=== PATIENT | male | born 1940 | race Caucasian/White ===

== ENCOUNTER 2018-01-08 13:44 | Inpatient (IN) | payer OTHER, BC ==
[~2018-01-08] VITALS: Ht 172.7 cm; Wt 78.7 kg
[~2018-01-08 13:44] MED LIST: AGGRENOX1 CAPSULE PO; ALEVE220 M2 PO; ASPIR-LOW81 MG PO; BESIVANCE5 ML BOTH EYES; BYSTOLIC5 MG PO; CHILD ASPIRIN81 M1 PO; CLONIDINE HCL0.1 MG PO; CRESTOR10 MG PO; EDARBI40 MG PO; FLOMAX0.4 MG PO; LORAZEPAM0.5 MG PO; LOTRISONE15 GM TP; OMEPRAZOLE40 M1 PO; PLAVIX75 MG PO; PRED FORTE100 DROP/5 BOTH EYES; PREDNISONE1 MG PO; PROLENSA1.6 ML BOTH EYES
[2018-01-08] MEDS ORDERED: BYSTOLIC2.5 MG PO (14:49)
[2018-01-08] MEDS ORDERED: BYSTOLIC5 MG PO (14:50)
[2018-01-08] MEDS ORDERED: NORVASC2.5 MG PO (14:51)
[2018-01-08] MEDS ORDERED: AMITIZA24 MICROGR PO (14:51)
[2018-01-08] MEDS ORDERED: 50+ ADULT EYE1 EACH PO (14:53)
[2018-01-08] MEDS ORDERED: CRESTOR10 MG PO (14:53)
[2018-01-08] MEDS ORDERED: MEN'S MULTI-VI1 EACH PO (14:54)
[2018-01-08 14:59] LABS: BASOPHIL (%) 0.5 % (0-1); EOSINOPHIL (%) 0.8 % (0-5); EOSINOPHIL COUNT 0.1 K/uL (0-0.3); HEMATOCRIT 42.5 % (38.0-50.0); HEMOGLOBIN 14.2 G/DL (12.5-16.6); IMMATURE GRANULOCYTE (%) 0.4 % (0.0-0.7); LYMPHOCYTE (%) 13.7 % (15-42); MCH 29.7 PG (29.0-34.0); MCHC 33.4 G/DL (30.0-36.0); MCV 88.9 FL (86-99); MONOCYTE (%) 5.9 % (3-12); MONOCYTE COUNT 0.4 K/uL (0-0.8); NEUTROPHIL (%) 78.7 % (45-76); NEUTROPHIL COUNT 5.9 K/uL (1.8-6.4); PLATELET COUNT 227 K/uL (156-360); RBC DIS.WIDTH-CV 13.4 % (11.8-14.6); RBC DIS.WIDTH-SD 43.8 % (39-53); RED BLOOD COUNT 4.78 M/uL (4.00-5.50); WHITE BLOOD COUNT 7.5 K/uL (4.1-10.2)
[2018-01-08 15:17] LABS: CHLORIDE 101 MEQ/L (99-109); SODIUM 135 MEQ/L (136-147)
[2018-01-08 15:23] LABS: CREATININE 0.7 MG/DL (0.6-1.3); GFR ESTIMATE (CALCULATED) > 59 mL/min/ (58.99-99999); GLUCOSE 112 mg/dL (70-99); HDL CHOLESTEROL 62 MG/DL (Desirable>=40); LDL CHOLESTEROL 101 mg/dL (Desirable<100); NON-HDL CHOLESTEROL 131 mg/dL (Desirable<160); TOTAL CHOLESTEROL 193 mg/dL (Desirable<200); TRIGLYCERIDES 151 MG/DL (Normal: <150); UREA NITROGEN (BUN) 15 mg/dL (9-23)
[2018-01-08] MEDS ORDERED: LAMISIL250 MG PO (18:49)
[2018-01-08] MEDS ORDERED: ATIVAN0.5 MG PO (18:56)
[2018-01-08 20:05] VITALS: BP 195/84
[2018-01-08 23:25] VITALS: BP 134/85
[2018-01-09 04:10] VITALS: BP 117/62
[2018-01-09 07:52] VITALS: BP 138/78
[2018-01-09 09:04] LABS: HEMOGLOBIN A1c (GLYCOHEMOGLOB) 6.1 % (Below 5.7)
[2018-01-09 11:29] VITALS: BP 140/80
[2018-01-09 15:10] VITALS: BP 138/70
[2018-01-09 18:56] VITALS: BP 149/72
[2018-01-09 23:47] VITALS: BP 165/71
[2018-01-10 03:41] VITALS: BP 162/71
[2018-01-10 07:25] VITALS: BP 170/77
[2018-01-10 15:32] VITALS: BP 154/71
[2018-01-10 19:37] VITALS: BP 170/74
[2018-01-10 23:08] VITALS: BP 130/62
[2018-01-11 04:03] VITALS: BP 128/62
[2018-01-11 06:01] LABS: HEMATOCRIT 38.9 % (38.0-50.0); HEMOGLOBIN 13.1 G/DL (12.5-16.6); MCH 30.2 PG (29.0-34.0); MCHC 33.7 G/DL (30.0-36.0); MCV 89.6 FL (86-99); PLATELET COUNT 217 K/uL (156-360); RBC DIS.WIDTH-CV 13.7 % (11.8-14.6); RBC DIS.WIDTH-SD 44.8 % (39-53); RED BLOOD COUNT 4.34 M/uL (4.00-5.50); WHITE BLOOD COUNT 6.4 K/uL (4.1-10.2)
[2018-01-11 06:42] LABS: CHLORIDE 103 MEQ/L (99-109); CREATININE 0.8 MG/DL (0.6-1.3); GFR ESTIMATE (CALCULATED) > 59 mL/min/ (58.99-99999); GLUCOSE 101 mg/dL (70-99); POTASSIUM 4.3 MEQ/L (3.7-5.4); SODIUM 139 MEQ/L (136-147); UREA NITROGEN (BUN) 16 mg/dL (9-23)
[2018-01-11 07:15] VITALS: BP 129/76
[2018-01-11 11:00] VITALS: BP 124/59
== END 2018-01-11 15:08 | disposition home health service (06) | DRG 69 ==
LOC: EME 13:44 → EDOF 18:35 → 5SOUTH 18:35 → ENRESERV 18:52 → 5SOUTH 19:47
PROVIDERS: Emergency Medicine; Family Medicine
DX: G45.8 Other transient cerebral ischemic attacks and related syndromes (principal); G40.909 Epilepsy, unspecified, not intractable, without status epilepticus; I10 Essential (primary) hypertension; E78.5 Hyperlipidemia, unspecified; F41.9 Anxiety disorder, unspecified; R29.6 Repeated falls; R32 Unspecified urinary incontinence; Z86.73 Personal history of transient ischemic attack (TIA), and cerebral infarction without residual deficits; I49.3 Ventricular premature depolarization; R73.01 Impaired fasting glucose; K59.09 Other constipation; K21.9 Gastro-esophageal reflux disease without esophagitis; M35.3 Polymyalgia rheumatica; N40.0 Benign prostatic hyperplasia without lower urinary tract symptoms; Z98.1 Arthrodesis status; Z82.3 Family history of stroke
CPT/HCPCS: 70450; 70496; 70498; 70551; 71045; 80048; 80061; 82746; 83036; 84425 90; 85025; 85027; 85610; 85730; 93005; 93306; 93880; 95819; 99281; 99285